=== PATIENT | female | born 1950 | race Caucasian/White ===

== ENCOUNTER 2016-08-10 19:19 | Inpatient (IN) | payer MEDICARE ==
[~2016-08-10] VITALS: Ht 165.1 cm; Wt 49.6 kg
[~2016-08-10 19:19] MED LIST: ASPI81TA82 PO; MULT-65 PO; PENT400 PO
[2016-08-10 19:21] VITALS: BP 181/81; PULSE 95; RESP 18; TEMP 98.5; O2SAT 99
--- NOTE | 2016-08-10 20:52 | PD ---
HPI Chief Complaint: Fall Time Seen by Provider: 20:52 Travel History International Travel<30 days: No Contact w/Intl Traveler<30days: No Traveled to known affect area: No History of Present Illness HPI 66 year-old female is no significant medical history presents to emergency department for evaluation left hip pain. Patient states that she was taking the trash out and moving some plants at the end of her driveway when she slipped and fell, landing on her left hip. She was unable to get herself up. Her neighbor ladameena assisted her into her sister's car. Patient did not strike her head or lose consciousness. No other focal deficits or weakness. PFSH Past Medical History Menopausal: Yes Social History Alcohol Use: No Tobacco Use: No Substance Use: No Allergies-Medications (Allergen,Severity, Reaction): Coded Allergies: Penicillin (Verified Allergy, Severe, 08/10/16) Latex (Verified Allergy, Unknown, 08/10/16) Uncoded Allergies: FLU SHOTS (Allergy, Severe, 06/11/13) Reported Meds & Prescriptions Reported Meds & Active Scripts Active Reported Calcium Ascorbate 500 Mg Tab 500 Mg PO Multi-Vitamin Daily (Multiple Vitamin) 1 Tab Tab 1 Tab PO DAILY Review of Systems Except as stated in HPI: all other systems reviewed are Neg Physical Exam Narrative GENERAL: Well-nourished female patient, in no acute distress SKIN: Warm and dry. Centimeter size abrasion on the palmar surface of the left hand HEAD: Atraumatic. Normocephalic. EYES: Pupils equal and round. No scleral icterus. No injection or drainage. ENT: No nasal bleeding or discharge. Mucous membranes pink and moist. NECK: Trachea midline. No JVD. No cervical spine tenderness. CARDIOVASCULAR: Regular rate and rhythm. No murmur appreciated. RESPIRATORY: No accessory muscle use. Clear to auscultation. Breath sounds equal bilaterally. GASTROINTESTINAL: Abdomen soft, non-tender, nondistended. Hepatic and splenic margins not palpable. MUSCULOSKELETAL: No obvious deformities. No clubbing. No cyanosis. No edema. Mild shortening of the LLE; no rotation; distal pulses are palpable. Sensation intact distal extremities NEUROLOGICAL: Awake and alert. No obvious cranial nerve deficits. Motor grossly within normal limits. Normal speech. PSYCHIATRIC: Appropriate mood and affect; insight and judgment normal. Data Data Last Documented VS Vital Signs Date Time Temp Pulse Resp B/P Pulse Ox O2 Delivery O2 Flow Rate FiO2 08/10/16 21:56 96 20 99 Room Air 08/10/16 19:21 98.5 181/81 Orders Hip, Uni(Ap&Lat) W Ap Pelvis (08/10/16 ) Iv Access Insert/Monitor (08/10/16 21:08) Complete Blood Count With Diff (08/10/16 21:58) Basic Metabolic Panel (Bmp) (08/10/16 21:58) Coag Profile (08/10/16 21:58) Chest, Single Ap (08/10/16 ) Electrocardiogram (08/10/16 ) Urinalysis - C+S If Indicated (08/10/16 21:58) Hydromorphone Pf Inj (Dilaudid Pf Inj) (08/10/16 22:45) Ondansetron Inj (Zofran Inj) (08/10/16 22:45) Admit Order (Ed Use Only) (08/10/16 23:26) Labs Laboratory Tests Test 08/10/16 08/10/16 22:10 22:15 Urine Color YELLOW Urine Turbidity CLEAR Urine pH 7.5 Urine Specific [place] 1.018 Urine Protein TRACE mg/dL Urine Glucose (UA) NEG mg/dL Urine Ketones NEG mg/dL Urine Occult Blood NEG Urine Nitrite NEG Urine Bilirubin NEG Urine Urobilinogen LESS THAN 2.0 MG/DL Urine Leukocyte Esterase MOD Urine RBC 2 /hpf Urine WBC 1 /hpf Urine Squamous Epithelial 1 /hpf Cells Urine Bacteria RARE /hpf Urine Mucus FEW /lpf Microscopic Urinalysis Comment CULT NOT INDICATED White Blood Count 12.2 TH/MM3 Red Blood Count 4.44 MIL/MM3 Hemoglobin 13.4 GM/DL Hematocrit 40.4 % Mean Corpuscular Volume 91.1 FL Mean Corpuscular Hemoglobin 30.2 PG Mean Corpuscular Hemoglobin 33.1 % Concent Red Cell Distribution Width 13.7 % Platelet Count 171 TH/MM3 Mean Platelet Volume 8.6 FL Neutrophils (%) (Auto) 90.8 % Lymphocytes (%) (Auto) 3.5 % Monocytes (%) (Auto) 4.7 % Eosinophils (%) (Auto) 0.4 % Basophils (%) (Auto) 0.6 % Neutrophils # (Auto) 11.1 TH/MM3 Lymphocytes # (Auto) 0.4 TH/MM3 Monocytes # (Auto) 0.6 TH/MM3 Eosinophils # (Auto) 0.1 TH/MM3 Basophils # (Auto) 0.1 TH/MM3 CBC Comment AUTO DIFF Differential Comment AUTO DIFF CONFIRMED Platelet Estimate NORMAL Platelet Morphology Comment NORMAL Ovalocytes 1+ Prothrombin Time 11.4 SEC Prothromb Time International 1.0 RATIO Ratio Activated Partial 23.6 SEC Thromboplast Time Sodium Level 139 MEQ/L Potassium Level 3.7 MEQ/L Chloride Level 99 MEQ/L Carbon Dioxide Level 31.5 MEQ/L Anion Gap 9 MEQ/L Blood Urea Nitrogen 20 MG/DL Creatinine 0.72 MG/DL Estimat Glomerular Filtration 81 ML/MIN Rate Random Glucose 136 MG/DL Calcium Level 9.2 MG/DL MDM Medical Decision Making Medical Screen Exam Complete: Yes Emergency Medical Condition: Yes Medical Record Reviewed: Yes Differential Diagnosis Fracture versus dislocation versus contusion versus sprain Narrative Course 66 year-old female presents versus artifact for evaluation left hip pain following a slip and fall. X-ray imaging shows a moderately displaced subcapital left femoral neck fracture. A call was placed to orthopedic surgery. Pre op labs, cxr, and ekg are ordered. Dr. Heart return the call and states that Dr. Lewis will be taking orthopedic call for this night. A call has been placed to his service. [id number] Pfeiffer. Patient will be admitted to her service. Orthopedic surgery has not yet returned their call. Diagnosis Primary Impression: Closed left hip fracture Qualified Code: S72.002A - Closed left hip fracture, initial encounter Admitting Information Admitting Physician Requests: Admit Condition: Stable Antoinette Jolly Aug 10, 2016 20:52
[2016-08-10] MEDS ORDERED: MULT-65 PO (22:08)
[2016-08-10] MEDS ORDERED: CALC500T37 PO (22:08)
--- NOTE | 2016-08-10 22:15 | RADRPT ---
EXAM DATE/TIME: 08/10/2016 21:29 [facility] COMPARISON: No previous studies available for comparison. INDICATIONS : Left hip pain status post fall earlier this evening. MEDICAL HISTORY : None. SURGICAL HISTORY : None. ENCOUNTER: Initial ACUITY: 1 day PAIN SCORE: 10/10 LOCATION: Left hip. FINDINGS: A moderately displaced and slightly angulated subcapital left femoral neck fracture is present with s ome lateral and superior translocation of the dominant distal fragment relative to the femoral head w hich remains situated over the acetabulum. No adjacent pelvic fracture is noted. The contralateral ri ght hip is grossly intact. CONCLUSION: Moderately displaced subcapital left femoral neck fracture Hung Ang MD on August 10, 2016 at 22:12 Board Certified Radiologist. This report was verified electronically.
[2016-08-10 22:36] LABS: AUTOMATED NEUTROPHIL # 11.1 TH/MM3 (1.8-7.7); BASOPHIL # 0.1 TH/MM3 (0-0.2); BASOPHIL % 0.6 % (0.0-2.0); EOSINOPHIL # 0.1 TH/MM3 (0-0.4); EOSINOPHIL % 0.4 % (0.0-4.0); HEMATOCRIT 40.4 % (35.0-46.0); LYMPH % 3.5 % (9.0-44.0); LYMPHOCYTE # 0.4 TH/MM3 (1.0-4.8); MEAN CELL VOLUME 91.1 FL (80.0-100.0); MEAN CORPUSCULAR HEMOGLOBIN 30.2 PG (27.0-34.0); MEAN CORPUSCULAR HGB CONC 33.1 % (32.0-36.0); MONO % 4.7 % (0.0-8.0); NEUT % 90.8 % (16.0-70.0); PLATELET COUNT 171 TH/MM3 (150-450); RED BLOOD COUNT 4.44 MIL/MM3 (4.00-5.30); RED CELL DISTRIBUTION WIDTH 13.7 % (11.6-17.2); WHITE BLOOD COUNT 12.2 TH/MM3 (4.0-11.0)
[2016-08-10 22:38] LABS: HEMO FLAGS AUTO DIFF
--- NOTE | 2016-08-10 22:42 | RADRPT ---
EXAM DATE/TIME: 08/10/2016 22:19 [facility] COMPARISON: No previous studies available for comparison. INDICATIONS : Cough. Pre-op hip surgery. MEDICAL HISTORY : None. SURGICAL HISTORY : None. ENCOUNTER: Initial ACUITY: 1 day PAIN SCORE: 0/10 LOCATION: Bilateral chest FINDINGS: Mild biapical pleuroparenchymal scarring is noted. Lungs are hyperinflated with slight basilar inters titial prominence. No evidence of infiltrate or effusion. Cardiomediastinal contours are satisfactory . CONCLUSION: No acute disease. Hung Ang MD on August 10, 2016 at 22:39 Board Certified Radiologist. This report was verified electronically.
[2016-08-10 22:43] LABS: BACTERIA, URINE RARE /hpf; BLOOD, URINE NEG (NEG); COMMENT (UR) CULT NOT INDICATED; CULTURE IF INDICATED CULT NOT INDICATED; GLUCOSE,URINE NEG (NEG); KETONE, URINE NEG (NEG); MUCUS URINE FEW /lpf (OCC); NITRITE,URINE NEG (NEG); PH, URINE 7.5 (5.0-8.5); SQUAMOUS EPITHELIAL CELL URINE 1 /hpf (0-5); URINE COLOR YELLOW (YELLW/STRAW)
[2016-08-10] MEDS ORDERED: ONDANSETRON HCL 4 MG/2 ML VIAL IV PUSH ONE (22:45)
[2016-08-10] MEDS ORDERED: HYDROmorphone HCL PF 1 MG/ML VIAL IV PUSH ONE (22:45)
[2016-08-10 22:47] LABS: APTT (PATIENT) 23.6 SEC (24.3-30.1); PROTHROMBIN TIME - PATIENT 11.4 SEC (9.8-11.6)
[2016-08-10 22:59] LABS: BICARBONATE 31.5 MEQ/L (21.0-32.0); POTASSIUM 3.7 MEQ/L (3.5-5.1)
[2016-08-10 23:00] LABS: OVALOCYTES 1+ (NORMAL); PLATELET ESTIMATE SMEAR NORMAL (NORMAL); PLATELET MORPHOLOGY NORMAL (NORMAL); SCAN/DIFF AUTO DIFF CONFIRMED
--- NOTE | 2016-08-10 23:19 | PD ---
Physical Exam Date Seen by Provider: Aug 10, 2016 Time Seen by Provider: 22:00 Narrative I, Dr. Sepulveda, have reviewed the advance practice practitioner's documentation and am in agreement, met with the patient face to face, made the diagnosis, and the medical decision making was done by me. *My assessment and Findings: Patient seen and evaluated with nurse practitioner , please see previous notes for further information. Here status post fall, left hip pain. Denies any other injuries. Laboratory Tests Test 08/10/16 08/10/16 22:10 22:15 Urine Leukocyte Esterase MOD (NEG) Urine Bacteria RARE /hpf (NONE) Urine Mucus FEW /lpf (OCC) White Blood Count 12.2 TH/MM3 (4.0-11.0) Neutrophils (%) (Auto) 90.8 % (16.0-70.0) Lymphocytes (%) (Auto) 3.5 % (9.0-44.0) Neutrophils # (Auto) 11.1 TH/MM3 (1.8-7.7) Lymphocytes # (Auto) 0.4 TH/MM3 (1.0-4.8) Ovalocytes 1+ (NORMAL) Activated Partial 23.6 SEC Thromboplast Time (24.3-30.1) Blood Urea Nitrogen 20 MG/DL (7-18) Estimat Glomerular Filtration 81 ML/MIN (>89) Rate Random Glucose 136 MG/DL (74-106) Last 24 hours Impressions Hip and Pelvis X-Ray 08/10/16 0000 Signed Impressions: Service Date/Time: Wednesday, August 10, 2016 21:29 - CONCLUSION: Moderately displaced subcapital left femoral neck fracture Hung Ang MD Chest X-Ray 08/10/16 0000 Signed Impressions: Service Date/Time: Wednesday, August 10, 2016 22:19 - CONCLUSION: No acute disease. Hung Ang MD X-ray reveals left femoral neck fracture. Patient will need orthopedic treatment. Plan for admission. Data Data Last Documented VS Vital Signs Date Time Temp Pulse Resp B/P Pulse Ox O2 Delivery O2 Flow Rate FiO2 08/10/16 21:56 96 20 99 Room Air 08/10/16 19:21 98.5 181/81 Orders Hip, Uni(Ap&Lat) W Ap Pelvis (08/10/16 ) Iv Access Insert/Monitor (08/10/16 21:08) Complete Blood Count With Diff (08/10/16 21:58) Basic Metabolic Panel (Bmp) (08/10/16 21:58) Coag Profile (08/10/16 21:58) Chest, Single Ap (08/10/16 ) Electrocardiogram (08/10/16 ) Urinalysis - C+S If Indicated (08/10/16 21:58) Hydromorphone Pf Inj (Dilaudid Pf Inj) (08/10/16 22:45) Ondansetron Inj (Zofran Inj) (08/10/16 22:45) Labs Laboratory Tests Test 08/10/16 08/10/16 22:10 22:15 Urine Color YELLOW Urine Turbidity CLEAR Urine pH 7.5 Urine Specific [place] 1.018 Urine Protein TRACE mg/dL Urine Glucose (UA) NEG mg/dL Urine Ketones NEG mg/dL Urine Occult Blood NEG Urine Nitrite NEG Urine Bilirubin NEG Urine Urobilinogen LESS THAN 2.0 MG/DL Urine Leukocyte Esterase MOD Urine RBC 2 /hpf Urine WBC 1 /hpf Urine Squamous Epithelial 1 /hpf Cells Urine Bacteria RARE /hpf Urine Mucus FEW /lpf Microscopic Urinalysis Comment CULT NOT INDICATED White Blood Count 12.2 TH/MM3 Red Blood Count 4.44 MIL/MM3 Hemoglobin 13.4 GM/DL Hematocrit 40.4 % Mean Corpuscular Volume 91.1 FL Mean Corpuscular Hemoglobin 30.2 PG Mean Corpuscular Hemoglobin 33.1 % Concent Red Cell Distribution Width 13.7 % Platelet Count 171 TH/MM3 Mean Platelet Volume 8.6 FL Neutrophils (%) (Auto) 90.8 % Lymphocytes (%) (Auto) 3.5 % Monocytes (%) (Auto) 4.7 % Eosinophils (%) (Auto) 0.4 % Basophils (%) (Auto) 0.6 % Neutrophils # (Auto) 11.1 TH/MM3 Lymphocytes # (Auto) 0.4 TH/MM3 Monocytes # (Auto) 0.6 TH/MM3 Eosinophils # (Auto) 0.1 TH/MM3 Basophils # (Auto) 0.1 TH/MM3 CBC Comment AUTO DIFF Differential Comment AUTO DIFF CONFIRMED Platelet Estimate NORMAL Platelet Morphology Comment NORMAL Ovalocytes 1+ Prothrombin Time 11.4 SEC Prothromb Time International 1.0 RATIO Ratio Activated Partial 23.6 SEC Thromboplast Time Sodium Level 139 MEQ/L Potassium Level 3.7 MEQ/L Chloride Level 99 MEQ/L Carbon Dioxide Level 31.5 MEQ/L Anion Gap 9 MEQ/L Blood Urea Nitrogen 20 MG/DL Creatinine 0.72 MG/DL Estimat Glomerular Filtration 81 ML/MIN Rate Random Glucose 136 MG/DL Calcium Level 9.2 MG/DL [facility] Medical Record Reviewed: Yes Supervised Visit with ARA: Yes Diagnosis Primary Impression: Closed left hip fracture Qualified Code: S72.002A - Closed left hip fracture, initial encounter Admitting Information Admitting Physician Requests: Admit Condition: Stable Usha Sepulveda MD Aug 10, 2016 23:19
--- NOTE | 2016-08-10 23:31 | HHI.HP ---
[facility] Primary Care Physician Admission Diagnosis L hip fracture Diagnoses: (1) Fall Diagnosis: Principal (2) Closed left hip fracture Diagnosis: Principal (3) UTI (urinary tract infection) Diagnosis: Principal Travel History International Travel<30 Days: No Contact w/Intl Traveler <30 Da: No Traveled to Known Affected Are: No History of Present Illness This is a 66-year-old female with no significant PMH who is brought to the ER by EMS secondary to left hip pain following fall. Per patient, she was moving palm fronds of her driveway when she slipped and landed on her left hip. Mills immediate pain at that time. Denies LOC or head trauma. On arrival, BP 181/81 , HR 95, O2 sat 99% on RA, Afebrile. WBC 12.2. Chemistry essentially unremarkable except for GFR of 81. UA with moderate LE and mild bacteriuria. CXR with no acute findings. Pelvis X-ray with moderately displaced subcapital left femoral neck fracture. Orthopedics consulted by ER physician. Review of Systems Other ROS: 14 point review of systems otherwise negative. Past Family Social History Past Medical History PMH: None Past Surgical History PAST SURGICAL HISTORY: Tonsillectomy, Appendectomy Allergies: Coded Allergies: Penicillin (Verified Allergy, Severe, 08/10/16) Latex (Verified Allergy, Unknown, 08/10/16) Uncoded Allergies: FLU SHOTS (Allergy, Severe, 06/11/13) Family History PAST FAMILY HISTORY: Reviewed. No h/o DM or CAD Social History PAST SOCIAL HISTORY: Negative for alcohol, tobacco or drugs. Physical Exam Vital Signs Vital Signs Date Time Temp Pulse Resp B/P Pulse Ox O2 Delivery O2 Flow Rate FiO2 08/10/16 21:56 96 20 99 Room Air 08/10/16 19:21 98.5 95 18 181/81 99 Room Air Physical Exam PE: GENERAL: Very pleasant elderly white female in no acute distress. HEENT: PERRLA, EOMI. No scleral icterus or conjunctival pallor. No lid lag or facial droop. CARDIOVASCULAR: Regular rate and rhythm. No obvious murmurs to auscultation. No chest tenderness to palpation. RESPIRATORY: No obvious rhonchi or wheezing. Clear to auscultation. Breath sounds equal bilaterally. GASTROINTESTINAL: Abdomen soft, non-tender, nondistended. BS normal. MUSCULOSKELETAL: Decreased ROM of LLE secondary to injury. Pulses intact. NEUROLOGICAL: Awake, alert and oriented x4. No focal neurologic deficits. Moving both upper and lower extremities spontaneously. Laboratory Laboratory Tests Test 08/10/16 08/10/16 22:10 22:15 Urine Color YELLOW Urine Turbidity CLEAR Urine pH 7.5 Urine Specific [place] 1.018 Urine Protein TRACE Urine Glucose (UA) NEG Urine Ketones NEG Urine Occult Blood NEG Urine Nitrite NEG Urine Bilirubin NEG Urine Urobilinogen LESS THAN 2.0 Urine Leukocyte Esterase MOD Urine RBC 2 Urine WBC 1 Urine Squamous Epithelial 1 Cells Urine Bacteria RARE Urine Mucus FEW Microscopic Urinalysis Comment CULT NOT INDICATED White Blood Count 12.2 Red Blood Count 4.44 Hemoglobin 13.4 Hematocrit 40.4 Mean Corpuscular Volume 91.1 Mean Corpuscular Hemoglobin 30.2 Mean Corpuscular Hemoglobin 33.1 Concent Red Cell Distribution Width 13.7 Platelet Count 171 Mean Platelet Volume 8.6 Neutrophils (%) (Auto) 90.8 Lymphocytes (%) (Auto) 3.5 Monocytes (%) (Auto) 4.7 Eosinophils (%) (Auto) 0.4 Basophils (%) (Auto) 0.6 Neutrophils # (Auto) 11.1 Lymphocytes # (Auto) 0.4 Monocytes # (Auto) 0.6 Eosinophils # (Auto) 0.1 Basophils # (Auto) 0.1 CBC Comment AUTO DIFF Differential Comment AUTO DIFF CONFIRMED Platelet Estimate NORMAL Platelet Morphology Comment NORMAL Ovalocytes 1+ Prothrombin Time 11.4 Prothromb Time International 1.0 Ratio Activated Partial 23.6 Thromboplast Time Sodium Level 139 Potassium Level 3.7 Chloride Level 99 Carbon Dioxide Level 31.5 Anion Gap 9 Blood Urea Nitrogen 20 Creatinine 0.72 Estimat Glomerular Filtration 81 Rate Random Glucose 136 Calcium Level 9.2 Result Diagram: 08/10/16221408/10/162214 Assessment and Plan Problem List: (1) Fall ICD Code: W19.XXXA Status: Acute (2) Closed left hip fracture ICD Code: S72.002A Status: Acute (3) UTI (urinary tract infection) ICD Code: N39.0 Status: Acute Assessment and Plan A/P: 1. Fall: s/p mechanical slip and fall, no head injury or LOC. AA&Ox4 2. Left Hip Fx: secondary to above. Hip X-ray w/ moderately displaced subcapital left femoral neck fracture. Orthopedic Surgery consulted by ER physician, pending plan. Analgesics/antiemetics. 3. UTI: U/a w/ moderate LE, mild bacteriuria. Afebrile, WBC 12. Start IV Cipro. 4. DVT Prophylaxis: Anticoagulation post op per Ortho 5. Social work for d/c planning as needed. 6. Case discussed w/ ER physician at length. Physician Certification 2 Midnight Certification Type: Admission for Inpatient Services Order for Inpatient Services The services are ordered in accordance with Medicare regulations or non- Medicare payer requirements, as applicable. In the case of services not specified as inpatient-only, they are appropriately provided as inpatient services in accordance with the 2-midnight benchmark. Estimated LOS (days): 2 days is the estimated time the patient will need to remain in the hospital, assuming treatment plan goals are met and no additional complications. Post-Hospital Plan: Not yet determined Problem Qualifiers (1) Closed left hip fracture: Qualified Code: S72.002A - Closed left hip fracture, initial encounter Rolanda Pfeiffer MD Aug 10, 2016 23:31
[2016-08-11] VITALS (7 sets, daily range): BP systolic 112–144; BP diastolic 56–67; PULSE 74–94; RESP 16–18; TEMP 95.8–98.7; O2SAT 96–99
[2016-08-11] MEDS ORDERED: BISACODYL 10 MG SUPP PR PRN
[2016-08-11] MEDS ORDERED: SODIUM CHLORIDE 0.9% FLUSH 5 ML FLUSH FLUSH PRN
[2016-08-11] MEDS ORDERED: ACETAMINOPHEN 325 MG TAB PO PRN
[2016-08-11] MEDS ORDERED: ONDANSETRON HCL 4 MG/2 ML VIAL IVP PRN
[2016-08-11] MEDS ORDERED: MORPHINE SULFATE 4 MG/ML INJ IV PRN
[2016-08-11] MEDS ORDERED: ACETAMINOPHEN/HYDROcodone 325 MG/5 MG TAB PO PRN
[2016-08-11] MEDS: SODIUM CHLOR 0.9% 1000 ML INJ 1,000 ML IV SCH ×3 (01:42→20:00)
[2016-08-11] MEDS: CIPROFLOXACIN 400 MG PREMIX 200 ML IV SCH ×3 (01:43→12:00)
[2016-08-11] MEDS: LACTATED RINGER'S 1000 ML IV SCH (02:30)
[2016-08-11] MEDS ORDERED: INSULIN HUMAN REGULAR 1,000 UNITS/10 ML VIAL SQ PRN (02:30)
[2016-08-11] MEDS ORDERED: SODIUM CHLORID 0.9% 500 ML IV SCH (02:30)
[2016-08-11] MEDS ORDERED: traMADol HCL 50 MG TAB PO PRN (04:00)
[2016-08-11 06:04] LABS: AUTOMATED NEUTROPHIL # 7.1 TH/MM3 (1.8-7.7); BASOPHIL % 0.4 % (0.0-2.0); EOSINOPHIL % 0.1 % (0.0-4.0); HEMATOCRIT 36.4 % (35.0-46.0); HEMO FLAGS DIFF FINAL; LYMPH % 5.8 % (9.0-44.0); LYMPHOCYTE # 0.5 TH/MM3 (1.0-4.8); MEAN CELL VOLUME 90.3 FL (80.0-100.0); MEAN CORPUSCULAR HEMOGLOBIN 30.8 PG (27.0-34.0); MEAN CORPUSCULAR HGB CONC 34.1 % (32.0-36.0); MONO % 8.7 % (0.0-8.0); PLATELET COUNT 135 TH/MM3 (150-450); RED BLOOD COUNT 4.03 MIL/MM3 (4.00-5.30); RED CELL DISTRIBUTION WIDTH 13.2 % (11.6-17.2); WHITE BLOOD COUNT 8.3 TH/MM3 (4.0-11.0)
[2016-08-11 06:34] LABS: ALKALINE PHOSPHATASE 92 U/L (45-117); ALT (GPT) 39 U/L (10-53); ANION GAP 10 MEQ/L (5-15); AST (GOT) 33 U/L (15-37); BICARBONATE 25.8 MEQ/L (21.0-32.0); BLOOD UREA NITROGEN 13 MG/DL (7-18); CHLORIDE 103 MEQ/L (98-107); GLOMERULAR FILTRATION RATE 108 ML/MIN (>89); POTASSIUM 3.5 MEQ/L (3.5-5.1); SODIUM (NA) 139 MEQ/L (136-145); TOTAL BILIRUBIN ADULT 1.1 MG/DL (0.2-1.0)
[2016-08-11] MEDS ORDERED: SODIUM CHLORIDE 0.9% FLUSH 5 ML FLUSH FLUSH SCH (09:00)
[2016-08-11] MEDS ORDERED: GENTAMICIN SULFATE 80 MG/2 ML VIAL ONE (10:56)
[2016-08-11] MEDS ORDERED: XARE10TA PO (11:18)
[2016-08-11] MEDS ORDERED: WALKER WHEELS/F1 MIS (11:18)
[2016-08-11] MEDS ORDERED: HYDR-3366 PO (11:18)
[2016-08-11] MEDS ORDERED: ACETAMINOPHEN 1000 MG/100 ML VIAL IV ONE (11:25)
[2016-08-11] MEDS ORDERED: MIDAZOLAM HCL 2 MG/2 ML VIAL ONE (11:25)
[2016-08-11] MEDS ORDERED: fentaNYL CITRATE 250 MCG/5 ML AMP ONE (11:25)
[2016-08-11] MEDS ORDERED: VANCOMYCIN HCL 1000 MG VIAL ONE (11:56)
[2016-08-11] MEDS ORDERED: SODIUM CHLOR 0.9% 250 ML INJ 250 ML ONE (11:56)
[2016-08-11] MEDS ORDERED: TRANEXAMIC ACID INJ 735 MG in SODIUM CHLORIDE 0.9% INJ 100 ML IV SCH (12:00)
[2016-08-11] MEDS ORDERED: PROPOFOL 200 MG/20 ML AMP IV ONE (12:00)
[2016-08-11] MEDS ORDERED: NEOSTIGMINE 3 MG/3 ML SYR IV ONE (12:00)
[2016-08-11] MEDS ORDERED: ONDANSETRON HCL 4 MG/2 ML VIAL IV PUSH ONE (12:00)
[2016-08-11] MEDS ORDERED: ePHEDrine/NS 50 MG/5 ML SYR IV ONE (12:00)
[2016-08-11] MEDS ORDERED: NALOXONE HCL 0.4 MG/ML AMP IV ONE (12:00)
--- NOTE | 2016-08-11 12:28 | PD.OP ---
cc: Javon Lewis MD Operative Report Date of Surgery: Aug 11, 2016 Preoperative Diagnosis: Displaced left femoral neck fracture Postoperative Diagnosis: Procedure: Left hip bipolar arthroplasty Anesthesia: Gen. Surgeon: Javon Lewis Looseleaf Binder Coverer(s): GENOVEVA Hanson PA-C The surgical procedure was assisted by my physician account assistant. My P.A. presence was necessary throughout this case for the manipulation and positioning of the surgical extremity. My P.A. was assisting me throughout the duration of this procedure. The skill set of a physician account assistant was medically necessary to complete this procedure. During the surgical case the neurosurgical nurse was working at the back table and the physician account assistant was directly assisting me. Operation and Findings: PLAN OF ACTIVITY Weight bear as tolerated. IMPLANTS USED Arctrievaluy Corail size 12 stem with size [47] bipolar head and [+1.5] neck. DRAIN: 7 mm Mart-Hennessy drain DETAILS OF PROCEDURE This patient was brought into the operating room and placed on the OR table. The patient was given anesthesia. The patient received IV antibiotics. The patient was then placed in lateral decubitus position. The hip and leg were prepped with alcohol, followed by Hibiclens and draped in a usual sterile fashion. Clean air was used for this procedure. Time out procedure was performed. The procedure began with a 5 inch incision over the posterolateral hip. The subcutaneous tissue was dissected with the Bovie. The iliotibial band were split in line with fibers. The Charnley retractor was placed. The piriformis and external rotators were released from the femur and tagged with a #1 Vicryl suture. The capsule is now incised and tagged with #1 Vicryl. The femoral neck fracture was now visualized. A corkscrew was now used to remove the femoral head. The femoral head was sized and measured. Soft tissue was now protected. The hip skid was placed underneath the femoral neck. An oscillating saw was used to make a femoral neck cut. At this point attention was turned to preparation of the proximal femur. A box osteotome was used to remove the lateral cortex of the femoral neck. The T- handle reamer was used to open the femoral canal. Next, the canal was broached. A lateralizing reamer was used to help lateralize the prosthesis. At this point a trial head and neck were placed. The hip was reduced. The patient was found to have excellent stability with good range of motion. Trial components were removed. Soft tissue and bone were thoroughly irrigated. A Corail stem was now opened. The stem was now impacted into the proximal femur. Care was taken to keep appropriate anteversion. The head and neck were now impacted onto the stem. The hip was again reduced. The hip was found to have good range of motion and good stability. Leg lengths were clinically equal. The wound was thoroughly irrigated. The capsule, piriformis and iliotibial band were closed with #1 Vicryl. Subcutaneous tissue was closed with 3-0 Vicryl. The skin was closed with lilliana. A sterile dressing was applied with Primapore. The patient was placed into a knee immobilizer. The patient was awakened and transferred to the recovery room in stable condition. Needle and sponge counts were correct. Javon Lewis MD Aug 11, 2016 12:28
[2016-08-11] MEDS ORDERED: ERGOCALCIFEROL (VIT D2) 50,000 UNIT CAP PO ONE (12:30)
[2016-08-11] MEDS ORDERED: ceFAZolin 2 GM PREMIX 50 ML IV SCH (12:30)
[2016-08-11] MEDS ORDERED: MORPHINE SULFATE 4 MG/ML INJ IV PUSH PRN (12:30)
[2016-08-11] MEDS ORDERED: Post-op Orders (for Pharmacy) MISC XX ONE (12:30)
[2016-08-11] MEDS ORDERED: SODIUM CHLORIDE 0.9% FLUSH 5 ML FLUSH IVF PRN (12:30)
[2016-08-11] MEDS ORDERED: ACETAMINOPHEN/HYDROcodone 325 MG/7.5 MG TAB PO PRN (12:30)
[2016-08-11] MEDS ORDERED: DO NOT ADM ANY ANTICOAGULANT DRUGS XX PRN (13:15)
[2016-08-11] MEDS ORDERED: *MEPERIDINE 25 MG INJ VIAL PERIprocedural Use ONLY ONE (13:17)
--- NOTE | 2016-08-11 14:27 | MB ---
cc: ALEJANDRO CHI DATE OF CONSULTATION: 08/11/2016 REASON FOR CONSULTATION Left femoral neck fracture. CONSULTING PHYSICIAN Dr. Pfeiffer. HISTORY OF PRESENT ILLNESS Mrs. Robles is a 66-year-old female who was out cleaning up her lawn. She was moving palm fronds off her driveway. She slipped and fell. She landed on her left side. She had immediate left hip pain. She was unable to stand or ambulate. Pain is worse with movement and is improved with rest. She presented to the emergency room where x-rays revealed a displaced left femoral neck fracture. She has been admitted for treatment of this injury. She denies dizziness, syncope or loss of consciousness. Currently her only complaint is her left hip. PAST MEDICAL HISTORY PAST SURGICAL HISTORY Tonsillectomy and appendectomy. ALLERGIES PENICILLIN AND LATEX. ILLNESSES The patient denies any medical problems. MEDICATION Please see EMR for complete list of inpatient medications. This was reviewed. FAMILY HISTORY Family history is noncontributory. SOCIAL HISTORY The patient denies alcohol, tobacco or drug use. She does work. REVIEW OF SYSTEMS The patient denies headache, visual changes, neck pain, chest pain, shortness of breath, abdominal pain, nausea, vomiting or recent weight loss. She complains of left hip pain. PHYSICAL EXAMINATION GENERAL: The patient is a thin 66-year-old female in no acute distress. She is awake and alert. She is alert and oriented x3. VITAL SIGNS: Temperature 98.6, pulse 94, respirations 16, blood pressure 142/67, O2 sat 96% on room air. HEAD: The patient is normocephalic. Pupils are equal. NECK: Soft, nontender. Trachea is midline. ABDOMEN: Soft, nontender, nondistended. EXTREMITIES: Examination of bilateral upper extremities reveals no pain with shoulder, elbow or wrist motion. She has intact sensation in all fingers. She has good cap refill in all fingers. Skin is intact. Radial arteries are palpable. Sensation is intact in all fingers. Examination of right leg reveals no pain with hip, knee or ankle motion. Skin is intact. Dorsalis pedis pulse is palpable. Sensation is grossly intact. Examination of left leg reveals pain with any hip motion. She has no tenderness around her knee, tibia or ankle. Skin is intact. Dorsalis pedis pulse is palpable. X-RAYS X-rays of the left hip were reviewed. The patient has a displaced left femoral neck fracture. IMPRESSION Displaced left femoral neck fracture. PLAN Treatment options were discussed with the patient. At this point I would recommend left hip hemiarthroplasty. Risks of surgery include bleeding, infection, injuries to arteries, nerves and blood vessels, leg length discrepancy, hip dislocation, groin pain, need for conversion to total hip arthroplasty as well as medical complications including blood clot, stroke, heart attack and . All questions were answered. I will plan on surgery today. A mid-level provider in my office (nurse practitioner or physician branch assistant) may see this patient on follow-up visits and continue to implement the objectives of this plan including: Starting or adjusting medications, injections , cast application, orthotics, brace application, physical therapy, radiological studies (including x-ray, MRI, CT, ultrasound, bone scan), vascular studies, neurologic studies, specialist consultation, and proceeding with surgical management, as appropriate. MD SELMA Blue/DANA /10:40 AM /2:13 PM NATA
--- NOTE | 2016-08-11 14:29 | RADRPT ---
EXAM DATE/TIME: 08/11/2016 13:43 [facility] COMPARISON: No previous studies available for comparison. INDICATIONS : Post op left hip MEDICAL HISTORY : None. SURGICAL HISTORY : left hip replaced ENCOUNTER: Subsequent ACUITY: 1 day PAIN SCORE: Non-responsive. LOCATION: Left hip FINDINGS: The patient is status post a total hip arthroplasty with a bipolar prosthesis. Prosthesis is well-sea kenny. Alignment is anatomic. A fracture is not appreciated. CONCLUSION: Anatomic alignment. Parish Oliva MD FACR Board Certified Radiologist. This report was verified electronically.
[2016-08-11] MEDS: ACETAMINOPHEN/HYDROcodone 325 MG/7.5 MG TAB PO PRN (18:55)
--- NOTE | 2016-08-11 19:28 | EKG ---
Date Performed: 08/10/2016 Time Performed: 22:35:04 PTAGE: 66 years EKG: Sinus rhythm POSSIBLE RIGHT ATRIAL ENLARGEMENT LEFT ATRIAL ENLARGEMENT INCOMPLETE RIGHT BUNDLE BRANCH BLOCK POSSI BLE LEFT VENTRICULAR HYPERTROPHY ABNORMAL ECG NO PREVIOUS TRACING DOCTOR: Michael Ag Interpretating Date/Time 08/11/2016 19:23:37
[2016-08-11] MEDS: SODIUM CHLORIDE 0.9% FLUSH 5 ML FLUSH IVF SCH (21:00)
--- NOTE | 2016-08-11 23:59 | HHI.PR ---
Subjective Remarks patient seen earlier today. She reports that pain is under control. Denies any chest pain or shortness of breath. She denies any constipation. Refuses prophylactic laxative. Objective Vital Signs Date Time Temp Pulse Resp B/P Pulse Ox O2 Delivery O2 Flow Rate FiO2 08/11/16 22:20 Room Air 08/11/16 20:00 96.8 76 16 124/60 96 08/11/16 14:25 96.9 74 18 120/56 96 08/11/16 14:10 97.9 68 18 144/69 99 Nasal Cannula 2 08/11/16 14:00 68 18 144/69 99 Nasal Cannula 2 08/11/16 13:45 89 18 141/80 99 Nasal Cannula 2 08/11/16 13:30 62 18 137/68 99 Nasal Cannula 2 08/11/16 13:15 76 18 153/82 98 Nasal Cannula 2 08/11/16 13:00 85 18 149/85 98 Nasal Cannula 2 08/11/16 12:51 97.6 88 18 145/71 98 Nasal Cannula 2 08/11/16 08:00 96.5 79 18 124/60 99 08/11/16 02:54 98.6 94 16 142/67 96 08/11/16 02:00 80 16 140/62 100 08/11/16 00:08 98.7 91 16 144/65 97 I/O 08/10/16 08/10/16 08/10/16 08/11/16 08/11/16 08/11/16 07:00 15:00 23:00 07:00 15:00 23:00 Intake Total 348 ml 600 ml Balance 348 ml 600 ml Intake Oral 0 ml 600 ml IV Total 348 ml # Voids 4 5 # Bowel Movements 0 0 Result Diagram: 08/11/16 0530 08/11/16 0530 Objective Remarks GENERAL: sitting up in a recliner at bedside. She is alert and oriented 3. SKIN: Warm and dry. HEAD: Normocephalic. EYES: No scleral icterus. No injection or drainage. NECK: Supple, trachea midline. No JVD. CARDIOVASCULAR: Regular rate and rhythm without murmurs, gallops, or rubs. RESPIRATORY: Breath sounds equal bilaterally. No accessory muscle use. GASTROINTESTINAL: Abdomen soft, non-tender, nondistended. MUSCULOSKELETAL: No cyanosis, or edema. postoperative hip not examined. Peripheral perfusion intact. BACK: Nontender without obvious deformity. No CVA tenderness. A/P Assessment and Plan Postop ORIF for left hip fracture on 08/11 -Postsurgical management as per surgical service Pain management as per surgical service Anticoagulation as per surgical service //Possible UTI. On Cipro. DVT prophylaxis. The coagulation as pressure service. Thiago Ballesteros MD Aug 11, 2016 23:59
[2016-08-12] MEDS: CIPROFLOXACIN 400 MG PREMIX 200 ML IV SCH ×2 (00:23→12:00)
[2016-08-12 00:25] VITALS: BP 118/57; PULSE 77; RESP 18; TEMP 99.3; O2SAT 97
[2016-08-12] MEDS: LACTATED RINGER'S 1000 ML IV SCH (02:30)
[2016-08-12] MEDS: ACETAMINOPHEN/HYDROcodone 325 MG/7.5 MG TAB PO PRN ×2 (03:20→13:30)
[2016-08-12 04:25] VITALS: BP 110/54; PULSE 71; RESP 18; TEMP 98.7; O2SAT 94
[2016-08-12 05:23] LABS: REVIEW FLAG FINAL
[2016-08-12] MEDS ORDERED: MAGNESIUM HYDROXIDE SUSP 30 ML CUP PO PRN (06:00)
--- NOTE | 2016-08-12 06:34 | PD.ORT.PN ---
Subjective Subjective Remarks POD 1 s/p Left hip bipolar hemiarthroplasty doing well. pain conterolled. has not been out of bed yet Objective Vitals Vital Signs Date Time Temp Pulse Resp B/P Pulse Ox O2 Delivery O2 Flow Rate FiO2 08/12/16 00:25 99.3 77 18 118/57 97 08/11/16 22:20 Room Air 08/11/16 20:00 96.8 76 16 124/60 96 08/11/16 14:25 96.9 74 18 120/56 96 08/11/16 14:10 97.9 68 18 144/69 99 Nasal Cannula 2 08/11/16 14:00 68 18 144/69 99 Nasal Cannula 2 08/11/16 13:45 89 18 141/80 99 Nasal Cannula 2 08/11/16 13:30 62 18 137/68 99 Nasal Cannula 2 08/11/16 13:15 76 18 153/82 98 Nasal Cannula 2 08/11/16 13:00 85 18 149/85 98 Nasal Cannula 2 08/11/16 12:51 97.6 88 18 145/71 98 Nasal Cannula 2 08/11/16 08:00 96.5 79 18 124/60 99 I/O 08/11/16 08/11/16 08/11/16 08/12/16 08/12/16 08/12/16 07:00 15:00 23:00 07:00 15:00 23:00 Intake Total 348 ml 2106 ml 1036 ml Output Total 50 ml 20 ml Balance 348 ml 2056 ml 1016 ml Intake Oral 0 ml 600 ml IV Total 348 ml 1506 ml 1036 ml Output Drainage Total 50 ml 20 ml # Voids 4 5 # Bowel Movements 0 0 Result Diagram: 08/12/16 0431 08/11/16 0530 Imaging Last 24 hours Impressions Hip and Pelvis X-Ray 08/11/16 1225 Signed Impressions: Service Date/Time: Thursday, August 11, 2016 13:43 - CONCLUSION: Anatomic alignment. Parish Oliva MD Objective Remarks LLE: dressings clean and dry. intact. NVI. +knee brace. +drain Assessment & Plan Assessment and Plan 1) Left Hip Hemiarthroplasty - POD 1 -WBAT -posterior hip precautions -daily dressing changes POD 2 -DC drain on POD 2 -DVT prophylaxis -knee brace while in bed -CM for rehab placement -f/u with [facility] or [facility] in 2 weeks Marck Gomez Aug 12, 2016 06:34
[2016-08-12 07:55] VITALS: BP 103/55; PULSE 68; RESP 17; TEMP 97.1; O2SAT 97
[2016-08-12] MEDS: BISACODYL EC 5 MG TABEC PO SCH ×2 (08:47→19:44)
[2016-08-12] MEDS: CHOLECALCIFEROL (VIT D3) 5000 UNIT CAP PO SCH (08:47)
[2016-08-12] MEDS: DOCUSATE SODIUM 100 MG CAP PO SCH ×2 (08:47→19:44)
[2016-08-12] MEDS: SODIUM CHLORIDE 0.9% FLUSH 5 ML FLUSH IVF SCH ×2 (08:51→19:45)
[2016-08-12] MEDS: SODIUM CHLOR 0.9% 1000 ML INJ 1,000 ML IV SCH ×2 (08:57→16:00)
[2016-08-12] MEDS ORDERED: POLYETHYLENE GLYCOL 17 GM PKG PO SCH (09:00)
[2016-08-12 11:44] VITALS: BP 113/56; PULSE 81; RESP 17; TEMP 98.8; O2SAT 96
[2016-08-12] MEDS: ENOXAPARIN SODIUM 30 MG/0.3 ML SYRINGE SQ SCH (12:00)
--- NOTE | 2016-08-12 14:24 | HHI.PR ---
Subjective Remarks Follow up for fracture. Got OOB with PT to chair today. Denies any CP/SOB/N/V/ abd pn. Hasn't had a BM or passing flatus yet. Ok with trying a laxative. Objective Vitals Vital Signs Date Time Temp Pulse Resp B/P Pulse Ox O2 Delivery O2 Flow Rate FiO2 08/12/16 11:44 98.8 81 17 113/56 96 08/12/16 07:55 97.1 68 17 103/55 97 08/12/16 04:25 98.7 71 18 110/54 94 08/12/16 00:25 99.3 77 18 118/57 97 08/11/16 22:20 Room Air 08/11/16 20:00 96.8 76 16 124/60 96 08/11/16 14:25 96.9 74 18 120/56 96 I/O 08/11/16 08/11/16 08/11/16 08/12/16 08/12/16 08/12/16 07:00 15:00 23:00 07:00 15:00 23:00 Intake Total 348 ml 2106 ml 1516 ml Output Total 50 ml 20 ml Balance 348 ml 2056 ml 1496 ml Intake Oral 0 ml 600 ml 480 ml IV Total 348 ml 1506 ml 1036 ml Output Drainage Total 50 ml 20 ml # Voids 4 5 3 # Bowel Movements 0 0 0 Result Diagram: 08/12/16 0431 08/11/16 0530 Imaging Last Impressions Hip and Pelvis X-Ray 08/11/16 1225 Signed Impressions: Service Date/Time: Thursday, August 11, 2016 13:43 - CONCLUSION: Anatomic alignment. Parish Oliva MD Chest X-Ray 08/10/16 0000 Signed Impressions: Service Date/Time: Wednesday, August 10, 2016 22:19 - CONCLUSION: No acute disease. Hung Ang MD Objective Remarks GENERAL: Well-developed well-nourished. In no acute distress. SKIN: Warm and dry. No lesions noted. HEENT: Normocephalic. Pupils equal and round. Mucous membranes pink and moist. CARDIOVASCULAR: Regular rate and rhythm. No murmur appreciated. RESPIRATORY: No accessory muscle use. Clear to auscultation. Breath sounds equal bilaterally. GASTROINTESTINAL: Abdomen soft, non-tender, nondistended. Bowel sounds x4. MUSCULOSKELETAL: Left hip surgical dressing, CDI. No clubbing or cyanosis. No edema. NEUROLOGICAL: Awake and alert. No focal neurological deficits. Moves upper and lower extremities spontaneously. Normal speech. PSYCHIATRIC: Appropriate mood and affect; insight and judgment normal. Procedures ORIF left hip 08/11/16 A/P Problem List: (1) Fall ICD Code: W19.XXXA Status: Acute (2) Closed left hip fracture ICD Code: S72.002A Status: Acute (3) UTI (urinary tract infection) ICD Code: N39.0 Status: Acute Assessment and Plan Postop ORIF for left hip fracture on 08/11 -Postsurgical management as per surgical service Pain management as per surgical service Anticoagulation as per surgical service -Add bowel regiment //Abnormal UA. Doubt UTI. Urine not sent for culture. Afebrile with no leukocytosis. DC Cipro. DVT prophylaxis. Anticoagulation per surgical service. Written by Seth Hanna, acting as scribe for Dr. Ballesteros on 08/12/16 at 14:22. Discharge Planning Hopefully DC to [place] tomorrow. Attending Statement The documentation accurately reflects the work performed [id number] by me, Dr. Ballesteros on 08/12/16 at 14:22. Problem Qualifiers (1) Closed left hip fracture: Qualified Code: S72.002A - Closed left hip fracture, initial encounter Seth Hanna Aug 12, 2016 14:24 Thiago Ballesteros MD Aug 21, 2016 07:35
[2016-08-12] MEDS ORDERED: MAGNESIUM HYDROXIDE SUSP 30 ML CUP PO ONE (14:30)
[2016-08-12] MEDS: SENNOSIDES 8.6 MG TAB PO SCH ×2 (14:56→19:44)
[2016-08-12 15:41] VITALS: BP 114/54; PULSE 77; RESP 17; TEMP 98.6; O2SAT 98
[2016-08-12 20:00] VITALS: BP 149/65; PULSE 86; RESP 16; TEMP 98.4; O2SAT 96
[2016-08-13] VITALS: BP 130/63; PULSE 80; RESP 16; TEMP 98.3; O2SAT 94
[2016-08-13] MEDS: SODIUM CHLOR 0.9% 1000 ML INJ 1,000 ML IV SCH ×2 (02:00→10:55)
[2016-08-13] MEDS ORDERED: DOCUSATE SODIUM 100 MG CAP PO PRN (05:00)
[2016-08-13] MEDS ORDERED: POLYETHYLENE GLYCOL 17 GM PKG PO PRN (05:00)
[2016-08-13] MEDS ORDERED: BISACODYL EC 5 MG TABEC PO PRN (05:00)
[2016-08-13] MEDS: ACETAMINOPHEN/HYDROcodone 325 MG/7.5 MG TAB PO PRN (05:08)
--- NOTE | 2016-08-13 06:54 | PD.ORT.PN ---
Subjective Subjective Remarks Resting comfortably. Concerned about time off from work Objective Vitals Vital Signs Date Time Temp Pulse Resp B/P Pulse Ox O2 Delivery O2 Flow Rate FiO2 08/13/16 00:00 98.3 80 16 130/63 94 08/12/16 20:00 98.4 86 16 149/65 96 08/12/16 15:41 98.6 77 17 114/54 98 08/12/16 11:44 98.8 81 17 113/56 96 08/12/16 07:55 97.1 68 17 103/55 97 I/O 08/12/16 08/12/16 08/12/16 08/13/16 08/13/16 08/13/16 07:00 15:00 23:00 07:00 15:00 23:00 Intake Total 1516 ml 240 ml 240 ml 240 ml Output Total 20 ml 45 ml 15 ml Balance 1496 ml 240 ml 195 ml 225 ml Intake Oral 480 ml 240 ml 240 ml 240 ml IV Total 1036 ml Output Drainage Total 20 ml 45 ml 15 ml # Voids 3 4 1 2 # Bowel Movements 0 0 0 2 Result Diagram: 08/12/16 0431 08/11/16 0530 Imaging Last 24 hours Impressions Hip and Pelvis X-Ray 08/11/16 1225 Signed Impressions: Service Date/Time: Thursday, August 11, 2016 13:43 - CONCLUSION: Anatomic alignment. Parish Oliva MD Objective Remarks LLE: dressings clean and dry. intact. NVI. +knee brace. Assessment & Plan Assessment and Plan 1) Left Hip Hemiarthroplasty - POD 2 -WBAT -posterior hip precautions -daily dressing changes -DVT prophylaxis -knee brace while in bed - for rehab placement Orthopedically cleared for discharge to rehabilitation -f/u with [facility] or [facility] in 2 weeks OMA HOLLEY PA-C Aug 13, 2016 06:54
[2016-08-13 08:00] VITALS: BP 112/54; PULSE 73; RESP 20; TEMP 96.8; O2SAT 98
[2016-08-13] MEDS: CHOLECALCIFEROL (VIT D3) 5000 UNIT CAP PO SCH (08:00)
[2016-08-13] MEDS: SODIUM CHLORIDE 0.9% FLUSH 5 ML FLUSH IVF SCH (08:00)
[2016-08-13] MEDS: SENNOSIDES 8.6 MG TAB PO SCH (08:00)
[2016-08-13] MEDS: ENOXAPARIN SODIUM 30 MG/0.3 ML SYRINGE SQ SCH (10:52)
[2016-08-15] MEDS ORDERED: WHEEMIS3 (10:48)
[2016-08-15] MEDS ORDERED: GETGO ROLLING W1 MI1 (10:48)
[2016-08-15] MEDS ORDERED: COMMODE 3-IN-11 MIS (10:48)
[2016-08-19] MEDS ORDERED: THERTAB15 PO (09:31)
[2016-08-19] MEDS ORDERED: XARE10TA PO (09:31)
--- NOTE | 2016-08-21 01:26 | HHI.DS ---
Discharge Summary Admission Date Aug 10, 2016 at 23:28 Discharge Date: Aug 13, 2016 Admitting Diagnosis L hip fracture (1) Fall ICD Code: W19.XXXA (2) Closed left hip fracture ICD Code: S72.002A (3) UTI (urinary tract infection) ICD Code: N39.0 Procedures ORIF left hip 08/11/16 Brief History - From Admission This is a 66-year-old female with no significant PMH who is brought to the ER by EMS secondary to left hip pain following fall. Per patient, she was moving palm fronds of her driveway when she slipped and landed on her left hip. [place] immediate pain at that time. Denies LOC or head trauma. On arrival, BP 181/81 , HR 95, O2 sat 99% on RA, Afebrile. WBC 12.2. Chemistry essentially unremarkable except for GFR of 81. UA with moderate LE and mild bacteriuria. CXR with no acute findings. Pelvis X-ray with moderately displaced subcapital left femoral neck fracture. Orthopedics consulted by ER physician. Imaging Last Impressions Hip and Pelvis X-Ray 08/11/16 1225 Signed Impressions: Service Date/Time: Thursday, August 11, 2016 13:43 - CONCLUSION: Anatomic alignment. Parish Oliva MD Chest X-Ray 08/10/16 0000 Signed Impressions: Service Date/Time: Wednesday, August 10, 2016 22:19 - CONCLUSION: No acute disease. Hung Ang MD PE at Discharge GENERAL: Well-developed well-nourished. In no acute distress.alert and oriented 3. SKIN: Warm and dry. No lesions noted. HEENT: Normocephalic. Pupils equal and round. Mucous membranes pink and moist. CARDIOVASCULAR: Regular rate and rhythm. No murmur appreciated. RESPIRATORY: No accessory muscle use. Clear to auscultation. Breath sounds equal bilaterally. GASTROINTESTINAL: Abdomen soft, non-tender, nondistended. Bowel sounds x4. MUSCULOSKELETAL: Left hip surgical dressing, CDI. No clubbing or cyanosis. No edema. NEUROLOGICAL: Awake and alert. No focal neurological deficits. Moves upper and lower extremities spontaneously. postoperative hip not examined.Normal speech. PSYCHIATRIC: Appropriate mood and affect; insight and judgment normal. Pt update on day of discharge patient seen the morning of discharge. Says she feels well. Reports pain is under control. Hospital Course Patient underwent ORIF of left hip fracture on 08/11. Pain was managed by orthopedic service. Patient regained bowel function on day of discharge. Patient was started on Cipro on admission for possible UTI, however this was discontinued. Patient did have an abnormal UA on admission with rare bacteria, moderate leukocyte esterase. Patient denies any dysuria. Urinalysis was not sent for culture. Postop ORIF for left hip fracture on 08/11 -Postsurgical management as per surgical service Pain management as per surgical service Anticoagulation as per surgical service -Add bowel regiment //Abnormal UA. Doubt UTI. Urine not sent for culture. Afebrile with no leukocytosis. DCd Cipro. DVT prophylaxis. Anticoagulation per surgical service. Pt Condition on Discharge: Good Discharge Disposition: Rehab Inpatient Discharge Time: <= 30 minutes Discharge Instructions DIET: Follow Instructions for: Heart Healthy Diet Activities you can perform: Weight Bearing as Jacqui Other Activity Instructions: please see orthopedic recommendation Follow up Referrals: Orthopedics - 08/25/16 @ [facility] with Javon Gimenez MD New Medications: Hydrocodone-Acetaminophen ([place]) 10-325 Mg Tab 1 TAB PO Q4H PRN PAIN #60 Ref 0 TAB Walker with Front Wheels (Walker with Front Wheels) 1 Mis Mis 1 EA .ROUTE DIRECTED #1 Ref 0 EA Additional Information please see patient visit summary for accurate discharge medication list [place] 10/325 mg 1 tablet every 4 hours as needed for pain. Rivaroxaban 10mg daily for 10 days Continue calcium 500 mg daily, multivitamin Thiago Ballesteros MD Aug 21, 2016 01:26
== END 2016-08-13 11:50 | DRG 470 ==
LOC: NEPC 19:19 → NEDA 23:28 → N06A 08-11 01:50
PROVIDERS: ADMIT Internal Medicine; ATTEND Internal Medicine
PROC: 0SRS0JA Replacement of Left Hip Joint, Femoral Surface with Synthetic Substitute, Uncemented, Open Approach (ICD-10-PCS; principal; 2016-08-11 11:27)
DX: S72.012A Unspecified intracapsular fracture of left femur, initial encounter for closed fracture (principal); W01.0XXA Fall on same level from slipping, tripping and stumbling without subsequent striking against object, initial encounter; Y93.89 Activity, other specified; Y92.008 Other place in unspecified non-institutional (private) residence as the place of occurrence of the external cause; R82.90 Unspecified abnormal findings in urine
CPT/HCPCS: 71010; 73501; 73502; 80048; 80053; 81001; 82306; 85014; 85018; 85025; 85610; 85730; 93005; 94150; C1776; J0131; J0744; J1580; J1650; J2175; J2250; J2310; J2405; J2710; J3010; J3370; J7030; J7050; L1830